=== PATIENT | male | born 2000 | race Caucasian/White ===

== ENCOUNTER 2023-06-28 16:51 | Inpatient (IN) ==
--- NOTE | 2023-06-28 17:03 | ED Triage Note ---
Date of Service June 28, 2023 Provider in Triage Author: Cary Renae History of Present Illness This patient was briefly evaluated while in triage. An abbreviated physical exam was performed. This patient is a 23-year-old Male who presents to the ED for evaluation of central chest pain, no radiation, reports shob, no viral symptoms. Reports cardiac history of hypertrophic cardiomyopathy, ICD, sudden cardiac . Physical Exam CONSTITUTIONAL: in no acute pain or distress, resting comfortably SKIN: pink, warm, dry CARDIAC: regular rate and rhythm RESPIRATORY: in no respiratory distress, lungs clear to auscultation ABDOMEN: no TTP MSK: 5/5 strength throughout NEURO: no neuro deficits, alert and oriented x 3 Initial orders for labs and / or imaging were placed and patient was placed in the waiting area until a bed is available. Please see further documentation for the full ED course.
--- NOTE | 2023-06-28 17:26 | Emergency Department Note ---
Impression & Plan Heart block AV second degree, Lyme carditis, Chest pain, Elevated troponin I level ED Provider Note NAME: CALEB IZAGUIRRE AGE: 23 SEX: M : 2000 ARRIVES VIA: Walk-In INFORMANT: Patient, ED PROVIDER(S): Keith Chow DO CHIEF COMPLAINT: Palpitations HPI: The patient is a 23-year-old male who has a history of cardiomyopathy as well as cardiac arrest who has a defibrillator pacemaker who presented to the emergency department for an evaluation of palpitations. The patient denies having any new medications. He had no recent illnesses. He had no changes to his current medications. He is been compliant with his outpatient medications. Since this morning he started noticing trouble feeling well. The patient denies having any vomiting. He denies having any dysuria or frequency. ROS: See above HPI for pertinent positives & negatives. A total of 10 systems reviewed and were otherwise negative. PAST MEDICAL HISTORY: See Below PAST SURGICAL HISTORY: See Below FAMILY HISTORY: See Below SOCIAL HISTORY: See Below HOME MEDICATIONS: See Below ALLERGIES: See Below VITALS: See Below PHYSICAL EXAMINATION: GENERAL: Patient is awake alert in no acute distress patient is resting comfortably and showing no signs of anxiety EYES: The conjunctivae are clear. The pupils are round and reactive. EARS, NOSE, MOUTH AND THROAT: The nose is without any evidence of any deformity. NECK: The neck is nontender and supple. RESPIRATORY: Normal respiratory effort is noted there is no evidence of wheezing rhonchi or rales CARDIOVASCULAR: Irregular heartbeat was noted to auscultation. There is no definite murmur. GASTROINTESTINAL: The abdomen is soft. Abdomen is nontender. MUSCULOSKELETAL/EXTREMITIES: There is no evidence of gross deformity full range of motion is noted in the hips and shoulders. SKIN: There is no obvious evidence of any rash. There are no petechiae, pallor or cyanosis noted. NEUROLOGIC: Patient is awake alert and oriented x3 MEDICAL DECISION MAKING: The patient is a 23-year-old male who presented to the emergency department for an evaluation of chest pain and slow heart rate. The patient does have a history of hypertrophic cardiomyopathy. He has implantable pacer defibrillator. The patient was found to have a second-degree heart block in the emergency department. He was treated with transcutaneous pacer at the bedside. 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 I discussed the patient's laboratory and radiographic studies with him. I discussed his condition with the on-call [facility] heating and ventilating drafter as well as the on-call [facility] hospitalist. They have agreed to evaluate the patient in the emergency department for further management and disposition. Triage Nursing notes reviewed. Prior medical records reviewed Vital Signs: reviewed and remarkable for bradycardia. Differential diagnosis: Premature contractions, electrolyte abnormality, cardiac dysrhythmia, thyroid dysfunction, pulmonary embolism, infection, gastrointestinal, as well as other pathologies. ER treatment provided: See below Diagnostics interpreted by me: ECG: EKG was obtained in the emergency department. My interpretation is sinus bradycardia at 57 bpm. PVCs were noted. Signs of second-degree heart block, type two, are noted. No previous EKG were noted. Cardiac Monitoring: An order was placed for continuous cardiac monitoring. The monitor shows a rate of 58 bpm with second-degree heart block. Laboratory studies: As stated above and show below. Imaging studies: See below. Radiographic imaging was reviewed by myself Consultation(s): I discussed this case with Dr. Day who is on-call for [facility] cardiology. I discussed this case with Dr. iHckey who is on-call for the [facility] hospitalist group ED COURSE: Procedures: none Critical Care: I have personally spent greater than 35 minutes of critical care time in the direct management of this patient. This includes bedside care, interpretation of diagnostic studies, and testing, discussion with consultants, patient, and family members, and other required patient management activities. This 35 minutes is in excess of all separately billable procedures. 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 [employer] Feels Safe at Home: Yes Allergies Allergies Allergy/AdvReac Type Severity Reaction Status Date / Time No Known Drug Allergies Allergy 0 Verified 06/28/23 19:22 Home Meds Home Medications Medication Instructions Recorded Confirmed buspirone 10 mg tablet 10 mg PO TID PRN Anxiety 06/28/23 06/28/23 metoprolol succinate 25 mg 25 mg PO QAM 06/28/23 06/28/23 tablet,extended release 24 hr Results & Data (ED) Vital Signs Vital Signs - 24 hr 06/28/23 16:52 06/28/23 17:01 06/28/23 17:03 Temperature 36.6 C Temperature Source Temporal Artery Scan Pulse Rate 92 H Pulse Rate [Apical] Respiratory Rate 20 Respiratory Effort / Characteristics Non-Labored Spontaneous Respiratory Depth Normal Blood Pressure 128/76 Blood Pressure [Right Arm] Blood Pressure Mean 93 Blood Pressure Mean [Right Arm] Pulse Oximetry 97 99 97 Oxygen Delivery Method Room Air Room Air Room Air Sepsis Recent Fever Within 48 Hours No Sepsis New/Unexplained Change in Mental Status N/A Sepsis Action Taken by Nursing No Action Required 06/28/23 17:21 06/28/23 17:38 Temperature Temperature Source Pulse Rate 87 Pulse Rate [Apical] 67 Respiratory Rate 17 Respiratory Effort / Characteristics Respiratory Depth Blood Pressure Blood Pressure [Right Arm] 149/95 H Blood Pressure Mean Blood Pressure Mean [Right Arm] 113 Pulse Oximetry 98 Oxygen Delivery Method Room Air Sepsis Recent Fever Within 48 Hours Sepsis New/Unexplained Change in Mental Status Sepsis Action Taken by Snf Medications Current Medication List: was personally reviewed by me Laboratory Data Attestation: I reviewed the patient's lab results. 06/28/23 17:12 06/28/23 17:12 Lab Results 06/28/23 06/28/23 Range/Units 17:12 18:58 WBC 11.60 H (4.8-10.8) K/ul RBC 5.64 (4.70-6.10) M/uL Hgb 17.5 (14.0-18.0) g/dl Hct 48.6 (42.0-52.0) % MCV 86.2 (80.0-100.0) fL MCH 31.0 (25.0-34.0) pg MCHC 36.0 (32.0-36.0) g/dL RDW Std Deviation 36.8 (36.4-46.3) fL RDW Coeff of Xochilt 11.8 (11.5-14.5) % Plt Count 314 (130-400) K/uL MPV 10.3 (9.4-12.4) fL Immature Gran % (Auto) 0.4 % Neut % (Auto) 62.6 % Lymph % (Auto) 24.6 % Rusk % (Auto) 10.3 % Eos % (Auto) 1.6 % Baso % (Auto) 0.5 % Neut # (Auto) 7.26 H (1.40-6.50) K/uL Lymph # (Auto) 2.85 (1.20-3.40) K/uL Rusk # (Auto) 1.19 H (0.11-0.59) K/uL Eos # (Auto) 0.19 (0.00-0.50) K/uL Baso # (Auto) 0.06 (0.00-0.20) K/uL Immature Gran # (Auto) 0.05 (0.01-0.20) K/uL Sodium 140 (136-145) mmol/L Potassium 4.5 (3.5-5.1) mmol/L Chloride 108 H (98-107) mmol/L Carbon Dioxide 23 (21-32) mmol/L Anion Gap 9 (3-11) BUN 17 (6-23) mg/dl Creatinine 1.12 (0.6-1.4) mg/dl Est Cr Clr Drug Dosing 116.1 ml/min Est GFR ( Amer) 106.0 ml/min Est GFR (Non-Af Amer) 91.5 ml/min BUN/Creatinine Ratio 15.2 (10-20) Glucose 89 (70-99(Fasting)) mg/dl Calcium 9.7 (8.6-10.3) mg/dl Magnesium 2.0 (1.7-2.4) mg/dl Total Bilirubin 0.4 (0.2-1.0) mg/dl AST 25 (13-39) U/L ALT 35 (7-52) U/L Alkaline Phosphatase 49 (34-104) U/L Troponin I High Sens 138.4 H* 174.9 H* D (0-20) pg/ml B-Natriuretic Peptide 97 (0-100) pg/ml Total Protein 7.4 (6.0-8.3) gm/dl Albumin 4.7 (3.4-5.0) gm/dl Globulin 2.7 (2.5-4.0) gm/dl Albumin/Globulin Ratio 1.7 (0.9-2) Lipase 29 (11-82) U/L TSH 2.676 (0.300-4.500) uIu/ml Lyme Disease IgG Ab Positive A (Negative) Lyme Disease IgM Ab Negative (Negative) Administered Medications Enoxaparin Sodium (Enoxaparin Inj 40 Mg/0.4 Ml Syr) 40 mg SQ Q24H MAMADOU Stop: 07/28/23 21:59 Last Admin: 06/28/23 21:45 Dose: 40 mg Documented By: ACC Discontinued Medications Ceftriaxone Sodium (Rocephin) 2,000 mg in 50 mls @ 100 mls/hr IV NOW STA Stop: 06/28/23 19:13 Last Infusion: 06/28/23 19:49 Dose: Infused Documented By: Admin: 06/28/23 18:59 Dose: 100 mls/hr Documented By: KASSANDRA Imaging Data Attestation: I personally reviewed and interpreted this imaging study as follows: My Impression: 1 view chest x-ray was obtained in the emergency department. My interpretation is no free air or definite infiltrate, final report below Radiologist's Impression: Chest X-Ray 06/28/23 17:03 XR chest 1V portable CLINICAL HISTORY: Chest pain, nonspecific. COMPARISON STUDY: No previous studies for comparison. FINDINGS: A left subclavian pacer/AICD is in place. Mild enlargement of the cardiac silhouette is noted. No evidence for pulmonary edema. No consolidation is present. There is no pneumothorax or pleural effusion. IMPRESSION: No acute cardiopulmonary findings. Mild cardiomegaly. ACT 112: Negative or not required by law. Electronically signed by: Juan Alberto Aceves M.D. 06/28/2023 6:00 PM Discharge Plan Visit Data Chief Complaint: Chest Pain Stated Complaint: CHEST PAINS, PALPITATIONS ED Provider: Keith Chow Discharge Problem: Heart block AV second degree, Lyme carditis, Chest pain, Elevated troponin I level Patient Disposition: Being Evaluated by Hospitalist Discharge Instructions Interventions: ED Discharge Assessment Last Done: 06/28/23 21:00 Discharge Problem: Chest pain Qualifiers: Chest pain type: unspecified Qualified Code(s): R07.9 - Chest pain, unspecified
[2023-06-28 17:29] LABS: Basophils # (auto) 0.06 K/uL (0.00-0.20); Basophils % (auto) 0.5 %; Eosinophils # (auto) 0.19 K/uL (0.00-0.50); Eosinophils % (auto) 1.6 %; Hematocrit (blood only) 48.6 % (42.0-52.0); Hemoglobin 17.5 g/dl (14.0-18.0); Immature Granulocytes # (auto) 0.05 K/uL (0.01-0.20); Immature Granulocytes % (auto) 0.4 %; Lymphocytes # (auto) 2.85 K/uL (1.20-3.40); Lymphocytes % (auto) 24.6 %; Mean Corpuscular Volume 86.2 fL (80.0-100.0); Mean Platelet Volume 10.3 fL (9.4-12.4); Monocytes # (auto) 1.19 K/uL (0.11-0.59); Monocytes % (auto) 10.3 %; Neutrophils # (auto) 7.26 K/uL (1.40-6.50); Neutrophils % (auto) 62.6 %; Platelet Count 314 K/uL (130-400); RDW Coefficient of Variation 11.8 % (11.5-14.5); RDW Standard Deviation 36.8 fL (36.4-46.3); Red Blood Count 5.64 M/uL (4.70-6.10)
[2023-06-28 17:46] LABS: Albumin Globulin Ratio 1.7 (0.9-2); Albumin Level 4.7 gm/dl (3.4-5.0); BUN Creatinine Ratio 15.2 (10-20); Bilirubin,Total 0.4 mg/dl (0.2-1.0); Calcium 9.7 mg/dl (8.6-10.3); Creatinine Clr Calc Pharmacy 116.1 ml/min; Est GFR (Non-African American) 91.5 ml/min; Globulin 2.7 gm/dl (2.5-4.0); Potassium 4.5 mmol/L (3.5-5.1); Total Protein 7.4 gm/dl (6.0-8.3)
[2023-06-28 17:55] LABS: Troponin I High Sensitivity 138.4 pg/ml (0-20)
--- NOTE | 2023-06-28 18:01 | XRay Report ---
XR chest 1V portable CLINICAL HISTORY: Chest pain, nonspecific. COMPARISON STUDY: No previous studies for comparison. FINDINGS: A left subclavian pacer/AICD is in place. Mild enlargement of the cardiac silhouette is not ed. No evidence for pulmonary edema. No consolidation is present. There is no pneumothorax or pleural effusion. IMPRESSION: No acute cardiopulmonary findings. Mild cardiomegaly. ACT 112: Negative or not required by law. Electronically signed by: Juan Alberto Aceves M.D. 06/28/2023 6:00 PM
[2023-06-28 18:02] LABS: Thyroid Stimulating Hormone 2.676 uIu/ml (0.300-4.500)
--- NOTE | 2023-06-28 18:24 | History & Physical Report ---
Date of Service June 28, 2023 Assessment & Plan (1) Mobitz type 2 second degree heart block: Plan: Palpitations, history of hypertrophic cardiomyopathy with ICD/Pacer. EKG for comparison 2018 sinus rhythm, report reviewed from patient's phone EKG suspicious for Mobitz 2 heart block w/ L bundle. OH appears generally consistent with intermittent dropped beats. Troponin 138. Patient has baseline elevated troponin, was able to few old records and by old troponin measurement generally runs approximately 0.125 Lyme IgG positive, IgM and Western blot pending. Will treat with Rocephin for potential cardiac Lyme with heart block. Patient did have a rash/spot on his hand a few months ago but this went away and has not had other symptoms including fever/chills/arthralgias since Admitted to PCU Cardiology consulted. Interrogation pending. Biomarkers trended Echo pending Metoprolol temporarily held Admitted to PCU with pacer pads in place (2) Lyme carditis: Plan: IgG positive, has a dog, has never been treated before. Has not noticed any tick bites but did out of her rash a few months ago on his hand which went away. No arthralgias - Heart block as noted - Rocephin as noted (3) Apical variant hypertrophic cardiomyopathy: Plan: ICD/pacer in place. Cardiology consulted. Atrial pacing lines are intermittently noted, but has not had ventricular pacing. Above discussed with cardiology, EP will see in the morning and evaluate for device adjustment (4) ICD (implantable cardioverter-defibrillator) in place: Plan DVT prophylaxis: Lovenox Disposition: PCU Diet: Low-salt CODE STATUS: Full code History of Present Illness Primary Care Provider: NO PCP Levi is a 23-year-old male with past medical history of hypertrophic cardiomyopathy with defibrillator/pacemaker in place who presents with palpitations. He has a mildly elevated troponin of 15.4, EKG shows sinus bradycardia? Type II heart block and left bundle. Case was discussed with Dr. Day while patient was in the ER prior to admission, low suspicion for ACS and suspect may need a pacemaker adjustment. Interrogation pending, echo pending. Will follow on PCU He reports that he started to have palpitations this morning but does not have chest pain/chest pressure or shortness of breath. He initially thought this was best described as pain but is not really pain, is more a feeling like his heart is missing beats without discomfort. This is not present at time of initial assessment, occurs intermittently and randomly. He has not had leg swelling. No fevers, chills, sweats. No arthralgias. No diarrhea/constipation. No syncope or lightheadedness or dizziness From [place], lives in [place] now. No tobacco or ETOH use. NKDA Sees cardiology for atrial cardiomyopathy. Has been told he is NYHA I-II C. Not recommended for experimental myosin tx. Follows with Dr. Ronn Snow Palpitation. Worried as he was told he had Adverse remodeling, mild from HOCM. NO cardiac MRI in 5 years, an echo in a year. Reports his troponin is normally elevated. TRop I 0.125 (old sensitivity). Apical Variant of HOCM with heart failure with ICD/Pacer. Had frequent arr ythmias which could be aflutter or fibrillation but prop setter. Is from [place], follows with [facility] Cardiology. Takes metoprolol 25mg daily. Took this morning, forgets sometimes. Prescribed buspar, but isn't taking this. Takes this for anxiety, but anxiety is not doing well lately. [place] terrible on Zoloft and SSRIs. Has never needed diuretics Allergies Allergy/AdvReac Type Severity Reaction Status Date / Time No Known Drug Allergies Allergy Verified 11/27/21 13:59 Home Medications Medication Instructions Recorded Confirmed Type metoprolol tartrate 50 mg tablet 50 mg PO DAILY 11/27/21 11/27/21 History Past Med/Surg History Medical History (Updated 06/28/23 @ 18:52 by Aroldo Marshall MD) Physical deconditioning Diastolic heart failure Ventricular tachycardia Supraventricular tachycardia Apical variant hypertrophic cardiomyopathy ICD (implantable cardioverter-defibrillator) in place Surgical History H/O bilateral inguinal hernia repair Social History Smoking Status: Never smoker Second Hand Exposure: No; Do You Dip or Chew Tobacco: No; Hx Alcohol Use: Yes Hx Substance Use: No Current Living Situation: Alone 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 NAD. Cooperative. HEENT: Atraumatic, normocephalic. Vision and hearing intact Pulm: CTAB A&P. -wheezes, -rales, -rhonchi. Symmetrical chest rise. No increased work of breathing. No respiratory distress. Cardiac: irregular, intermittent bradycardia. -mrg. Radial pulses intact and symmetrical. Abdominal: Nontender, nondistended, soft. BS present. Ext: warm, dry. No edema Results & Data Results & Data Vital Signs (Past 12 Hours) Vital Signs Temp Pulse Pulse Resp BP BP Pulse Ox 06/28/23 17:38 87 06/28/23 17:21 67 17 149/95 H 98 06/28/23 17:03 97 06/28/23 17:01 36.6 C 92 H 20 128/76 99 06/28/23 16:52 97 O2 Del Method 06/28/23 17:38 06/28/23 17:21 Room Air 06/28/23 17:03 Room Air 06/28/23 17:01 Room Air 06/28/23 16:52 Room Air PG Care Time/CCT Total # of Minutes Spent Total Time Spent with Patient: Total time spent is greater than 50% in coordination of care (as documented) at patient's floor/unit and/or counseling patient: Coding Level of Care Code 33996 INT INP/OBS CARE 3/75MIN Diagnoses Mobitz type 2 second degree heart block I44.1 Lyme carditis A69.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
[2023-06-28 18:27] LABS: Lyme Ab IgM w/WB Rflx Negative (Negative)
[2023-06-28 18:32] LABS: Lyme Ab IgG w/WB Rflx Positive (Negative)
[2023-06-28] MEDS ORDERED: cefTRIAXone SODIUM 2,000 MG/50 ML BAG IV STA (18:44)
[2023-06-28] MEDS ORDERED: ACETAMINOPHEN 325 MG TAB PO PRN (20:59)
[2023-06-28] MEDS: ENOXAPARIN INJ 40 MG/0.4 ML SYR SQ SCH (21:45)
[2023-06-29 04:02] LABS: Basophils # (auto) 0.08 K/uL (0.00-0.20); Basophils % (auto) 0.7 %; Eosinophils # (auto) 0.19 K/uL (0.00-0.50); Eosinophils % (auto) 1.7 %; Hematocrit (blood only) 49.2 % (42.0-52.0); Hemoglobin 16.8 g/dl (14.0-18.0); Immature Granulocytes # (auto) 0.05 K/uL (0.01-0.20); Immature Granulocytes % (auto) 0.5 %; Lymphocytes # (auto) 3.03 K/uL (1.20-3.40); Lymphocytes % (auto) 27.5 %; Mean Corpuscular Hemoglobin 30.2 pg (25.0-34.0); Mean Corpuscular Hgb Conc 34.1 g/dL (32.0-36.0); Mean Corpuscular Volume 88.3 fL (80.0-100.0); Mean Platelet Volume 9.8 fL (9.4-12.4); Monocytes # (auto) 0.96 K/uL (0.11-0.59); Monocytes % (auto) 8.7 %; Neutrophils % (auto) 60.9 %; Platelet Count 259 K/uL (130-400); RDW Coefficient of Variation 11.9 % (11.5-14.5); RDW Standard Deviation 37.7 fL (36.4-46.3); Red Blood Count 5.57 M/uL (4.70-6.10); White Blood Count 11.01 K/ul (4.8-10.8)
[2023-06-29 04:15] LABS: BUN Creatinine Ratio 14.3 (10-20); Calcium 9.3 mg/dl (8.6-10.3); Creatinine Clr Calc Pharmacy 132.7 ml/min; Est GFR (African American) 124.6 ml/min; Est GFR (Non-African American) 107.5 ml/min; Potassium 4.3 mmol/L (3.5-5.1)
--- NOTE | 2023-06-29 07:10 | Electrocardiogram Report ---
Test Reason : Blood Pressure : / mmHG Vent. Rate : 057 BPM Atrial Rate : 044 BPM P-R Int : 156 ms QRS Dur : 142 ms QT Int : 420 ms P-R-T Axes : 037 -05 122 degrees QTc Int : 408 ms Sinus tachycardia with high degree AV block Biatrial enlargement Left bundle branch block Abnormal ECG No previous ECGs available Confirmed by Lv Day ([id number]) on 06/29/2023 7:10:14 AM Referred By: REFERRED SELF Confirmed By:Jose Day
--- NOTE | 2023-06-29 09:29 | XCELERA ---
[id number]
--- NOTE | 2023-06-29 09:37 | Cardiology Consultation ---
Date of Consultation June 29, 2023 Assessment & Plan (1) Elevated troponin I level: (2) ICD (implantable cardioverter-defibrillator) in place: (3) Mobitz type 2 second degree heart block: (4) Apical variant hypertrophic cardiomyopathy: (5) Mitral regurgitation: Plan 1. Heart block: He has high-degree AV block. Review of his device suggest there were episodes occurring in late May. And recording from cardiac rehab on 06/24/2023 also records a single dropped beat. No prolongation of the DC interval prior to dropped beats suggestive of infra-Hisian disease. This seems more likely as his block seems to get worse when he is active as well. Unclear etiology, but the 2 leading possibilities would be Lyme carditis versus progression of his known hypertrophic cardiomyopathy. He appears to have other electrical problems associated with his hypertrophic cardiomyopathy to include ventricular fibrillation, what appears to be left bundle branch block and atrial flutter. Hopefully with treatment of Lyme disease we will see improvement in the conduction. Otherwise, this likely represents progression of his hypertrophic cardiomyopathy and he will simply require permanent reprogramming of his device to allow pacing support. 2. Elevated troponin: Reportedly a chronic condition. Old records also support this. No significant rise or fall to suggest an acute coronary syndrome or recent injury. Also possibly related to Lyme carditis or another myopathic process. 3. Mitral regurgitation: Mild to moderate. No outflow tract obstruction to suggest CAROL. 4. Hypertrophic cardiomyopathy: Apical variant. Unfortunately, he has had some severe complications related to his hypertrophic cardiomyopathy. No associated family members by report. While he does not have obstructive symptoms. Does have an element of diastolic dysfunction. There is some left atrial enlargement and reports of atrial flutter. There is no indication for any prophylactic treatment other than his electrical abnormalities. 5. Cardiac arrest: Less common in apical variant hypertrophic cardiomyopathy. Normally functioning ICD in place. No detected ventricular arrhythmias. 6. Dual-chamber ICD: Currently programmed to DDI 40. We discussed reprogramming to reduce symptoms. I reprogrammed the device to DDD 40. I programmed relatively short AV delays so that he is less symptomatic. We discussed periodic re-evaluation of the device to determine if pacing is still necessary and to adjust the AV delays if necessary. History of Present Illness Reason for Consultation: Heart block Requesting Physician: Joanna Attending Physician: Kishor Leone MD History of Present Illness The patient is a 23-year-old gentleman with a history apical variant hypertrophic cardia who presented to the emergency room with symptoms of chest pain. On further characterization the patient describes this more as a palpitation and a sense of irregularity in his heartbeat. The symptoms started the day prior. There were associated with some mild dizziness leading up to his admission. He has not suffered syncope. In the emergency room he was noted to have evidence of heart block. Lyme IgG titer was also positive and he was started on treatment for Lyme disease. Patient states that his diagnosis was prompted by a cardiac arrest that occurred while training several years ago. He underwent implantation of a dual-chamber [employer] ICD. He was placed on medical therapy with metoprolol. He has been followed by a director of group counseling program and environmental health and safety leader in [place]. He reports having some episodes of atrial flutter recorded on his device. He states that these episodes are infrequent and generally brief in duration. He has not noticed any rapid heartbeats recently. He avoids strenuous exercise by direction. Does have an element of mild dyspnea at times. This occurs with some activity. It does not limiting. It was not associated with chest pain. No presyncope or syncope. He does participate in cardiac rehab at our facility. He did not endorse any additional symptoms leading up to admission. He states that he did have a small rash on his right hand a short while ago. However, this was quite localized. No joint pain. No fevers or chills. No other more diffuse rashes or bruising. This morning he claims to be feeling well while in bed. However, he did notice some palpitations and some mild dizziness when getting up to the commode. Allergies Allergy/AdvReac Type Severity Reaction Status Date / Time No Known Drug Allergies Allergy 0 Verified 06/28/23 19:22 Home Medications Medication Instructions Recorded Confirmed Type buspirone 10 mg tablet 10 mg PO TID PRN Anxiety 06/28/23 06/28/23 History metoprolol succinate 25 mg 25 mg PO QAM 06/28/23 06/28/23 History tablet,extended release 24 hr Patient History Medical History (Updated 06/29/23 @ 09:39 by Lv Day MD) Physical deconditioning Diastolic heart failure Ventricular tachycardia Supraventricular tachycardia Apical variant hypertrophic cardiomyopathy ICD (implantable cardioverter-defibrillator) in place Surgical History H/O bilateral inguinal hernia repair Social History Smoking Status: Never smoker Second Hand Exposure: No; Do You Dip or Chew Tobacco: No; Hx Alcohol Use: No Hx Substance Use: No Preferred Language: Lithuanian Communication Ability: Effective Rehab Services Aide Required: No Beliefs That Will Affect Care: None Current Living Situation: Alone Current Living Situation Comment: Student at [employer], lives in studio appt current occupation: 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 Other Information That Helps Us Care for You: No Feels Safe at Home: Yes Safety Concerns: Feels Safe At This Time Review of Systems Review of Systems: Per HPI Physical Exam 2 Physical Exam: The patient is alert and oriented. Mood and affect appeared normal. He answered all questions appropriately. HEENT: Pupils are equal and reactive to light and accommodation. Extraocular movements are intact. The sclerae are anicteric. Neuro: Cranial nerves intact Lungs: Clear to auscultation bilaterally. He has good air movement without use of accessory muscles. No rales wheezes or rhonchi. Cardiac: Heart demonstrates a regular rhythm with occasional ectopy. Normal rate.. Normal S1 and S2. No murmurs on examination. Pulses: The patient has palpable radial pulses bilaterally that are equal in intensity Extremities: There was no evidence of hypoperfusion. There is no cyanosis or clubbing. There is no edema. Skin: I did not appreciate any rashes on examination today. Results & Data Vital Signs (Past 12 Hours) Vital Signs Temp Pulse Pulse Resp BP BP Pulse Ox 06/29/23 07:46 36.7 C 91 H 18 97/62 L 98 06/29/23 03:43 36.4 C L 62 18 126/70 97 06/28/23 23:59 36.9 C 95 H 18 117/74 98 06/28/23 23:59 06/28/23 23:52 72 06/28/23 23:51 36.9 C 95 H 17 117/74 98 06/28/23 23:01 71 13 125/65 98 06/28/23 22:00 73 16 125/58 L 96 O2 Del Method 06/29/23 07:46 Room Air 06/29/23 03:43 Room Air 06/28/23 23:59 Room Air 06/28/23 23:59 Room Air 06/28/23 23:52 06/28/23 23:51 Room Air 06/28/23 23:01 Room Air 06/28/23 22:00 Room Air Laboratory Results Abnormal Lab Results 06/28/23 06/28/23 06/29/23 17:12 18:58 03:48 WBC 11.60 H 11.01 H RBC 5.64 5.57 Hgb 17.5 16.8 Hct 48.6 49.2 MCV 86.2 88.3 MCH 31.0 30.2 MCHC 36.0 34.1 RDW Std Deviation 36.8 37.7 RDW Coeff of Xochilt 11.8 11.9 Plt Count 314 259 MPV 10.3 9.8 Immature Gran % (Auto) 0.4 0.5 Neut % (Auto) 62.6 60.9 Lymph % (Auto) 24.6 27.5 Alexander % (Auto) 10.3 8.7 Eos % (Auto) 1.6 1.7 Baso % (Auto) 0.5 0.7 Neut # (Auto) 7.26 H 6.70 H Lymph # (Auto) 2.85 3.03 Alexander # (Auto) 1.19 H 0.96 H Eos # (Auto) 0.19 0.19 Baso # (Auto) 0.06 0.08 Immature Gran # (Auto) 0.05 0.05 Sodium 140 140 Potassium 4.5 4.3 Chloride 108 H 107 Carbon Dioxide 23 25 Anion Gap 9 8 BUN 17 14 Creatinine 1.12 0.98 Est Cr Clr Drug Dosing 116.1 132.7 Est GFR ( Amer) 106.0 124.6 Est GFR (Non-Af Amer) 91.5 107.5 BUN/Creatinine Ratio 15.2 14.3 Glucose 89 92 Calcium 9.7 9.3 Magnesium 2.0 Total Bilirubin 0.4 AST 25 ALT 35 Alkaline Phosphatase 49 Troponin I High Sens 138.4 H* 174.9 H* D 193.4 H* B-Natriuretic Peptide 97 Total Protein 7.4 Albumin 4.7 Globulin 2.7 Albumin/Globulin Ratio 1.7 Lipase 29 TSH 2.676 Lyme Disease IgG Ab Positive A Lyme Disease IgM Ab Negative Diagnostic Findings Chest x-ray at time of admission did not reveal any acute cardiopulmonary process. I performed a complete device interrogation of his dual-chamber [employer] ICD. Currently programmed to DDI 40. Some episodes logged as ventricular tachycardia which are simply sinus tachycardia above the detection limit of 150 beats per minute. One episode of nonsustained VT which did demonstrate some heart block on June 20. No atrial arrhythmias. Estimated longevity 9.5 years. Mildly elevated pacing threshold on the right ventricular lead. Good sensing on both leads. Echocardiogram performed 06/29/2023: Normal LV systolic function with ejection fraction 55-60%. Stage I diastolic dysfunction. Evidence of apical hypertrophy. Mild to moderate mitral regurgitation. Mildly dilated left atriu m. ECG Additional Comments: Initial EKG demonstrated sinus tachycardia with high-degree AV block and left bundle branch block. PG Care Time/CCT Total # of Minutes Spent Total Time Spent with Patient: Total time spent is greater than 50% in coordination of care (as documented) at patient's floor/unit and/or counseling patient: Coding Level of Care Code 27602 IN/OBS CONSULT LVL 5,80M Diagnoses Elevated troponin I level R79.89 ICD (implantable cardioverter-defibrillator) in place Z95.810 Mobitz type 2 second degree heart block I44.1 Apical variant hypertrophic cardiomyopathy I42.2 Nonrheumatic mitral valve regurgitation I34.0 Cardiac valve disease etiology: nonrheumatic CPT Codes Implantable Defib dual lead programming - 13878 ([id number]) 26 - PROFESSIONAL COMPONENT (5) Mitral regurgitation Cardiac valve disease etiology: nonrheumatic Qualified Code(s): I34.0 - Nonrheumatic mitral (valve) insufficiency
[2023-06-29] MEDS: METOPROLOL SUCC 25MG EXT REL TAB PO SCH (11:19)
--- NOTE | 2023-06-29 12:11 | Electrocardiogram Report ---
Test Reason : Blood Pressure : / mmHG Vent. Rate : 074 BPM Atrial Rate : 074 BPM P-R Int : 158 ms QRS Dur : 144 ms QT Int : 432 ms P-R-T Axes : 031 -14 126 degrees QTc Int : 479 ms Poor data quality, interpretation may be adversely affected Sinus rhythm with high degree AV block Left atrial enlargement Left bundle branch block Abnormal ECG No previous ECGs available Confirmed by Lv Day ([id number]) on 06/29/2023 12:11:11 PM Referred By: REFERRED SELF Confirmed By:Jose Day
--- NOTE | 2023-06-29 16:21 | Hospitalist Progress Note ---
Date of Service June 29, 2023 Assessment & Plan (1) Mobitz type 2 second degree heart block: Plan: Palpitations, history of hypertrophic cardiomyopathy with ICD/Pacer. EKG for comparison 2018 sinus rhythm, report reviewed from patient's phone EKG suspicious for Mobitz 2 heart block w/ L bundle. NV appears generally consistent with intermittent dropped beats. Troponin 138. Patient has baseline elevated troponin, was able to few old records and by old troponin measurement generally runs approximately 0.125 Lyme IgG positive, IgM and Western blot pending. Will treat with Rocephin for potential cardiac Lyme with heart block. Patient did have a rash/spot on his hand a few months ago but this went away and has not had other symptoms including fever/chills/arthralgias since Discussed with ID over the phone patient is a candidate for IV antibiotic with Rocephin 2 g daily for 14 to 21 days unless his blood resolved then we will switch to doxycycline, we are waiting for rest of blood test, discussed with lab to result be available on Saturday, discussed with cardiology, Metoprolol temporarily held -Echocardiogram showed apical hypertrophy, grade 1 diastolic dysfunction history of apical variant of hypertrophic cardiomyopathy -as per cardiology : "Review of his device suggest there were episodes occurring in late May. And recording from cardiac rehab on 06/24/2023 also records a single dropped beat. No prolongation of the NV interval prior to dropped beats suggestive of infra-Hisian disease. - Cardiac arrest: Less common in apical variant hypertrophic cardiomyopathy. Normally functioning ICD in place. No detected ventricular arrhythmias. Dual-chamber ICD: Currently programmed to DDI 40. We discussed reprogramming to reduce symptoms. I reprogrammed the device to DDD 60. I programmed relatively short AV delays so that he is less symptomatic. We discussed periodic re- evaluation of the device to determine if pacing is still necessary and to adjust the AV delays if necessary" (2) Lyme carditis: Plan: IgG positive, has a dog, has never been treated before. Has not noticed any tick bites but did out of her rash a few months ago on his hand which went away. No arthralgias - Heart block as noted - Rocephin as noted (3) Apical variant hypertrophic cardiomyopathy: Plan: ICD/pacer in place. Cardiology consulted. Atrial pacing lines are intermittently noted, but has not had ventricular pacing. Above discussed with cardiology, EP will see in the morning and evaluate for device adjustment (4) ICD (implantable cardioverter-defibrillator) in place: Plan DVT prophylaxis: Lovenox Disposition: PCU Diet: Low-salt CODE STATUS: Full code Admission and Anticipated Discharge Date Admission Date: June 28, 2023 Physical Exam Physical Exam: The patient is alert and oriented. Mood and affect appeared normal. He answered all questions appropriately. HEENT: Pupils are equal and reactive to light and accommodation. Extraocular movements are intact. The sclerae are anicteric. Neuro: Cranial nerves intact Lungs: Clear to auscultation bilaterally. He has good air movement without use of accessory muscles. No rales wheezes or rhonchi. Cardiac: Heart demonstrates a regular rhythm with occasional ectopy. Normal rate.. Normal S1 and S2. No murmurs on examination. Pulses: The patient has palpable radial pulses bilaterally that are equal in intensity Extremities: There was no evidence of hypoperfusion. There is no cyanosis or clubbing. There is no edema. Skin: I did not appreciate any rashes on examination today. 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
[2023-06-29] MEDS: cefTRIAXone SODIUM 2,000 MG in DEXTROSE 5 % MINI-B 50 ML IV SCH (18:41)
[2023-06-29] MEDS: ENOXAPARIN INJ 40 MG/0.4 ML SYR SQ SCH (21:03)
[2023-06-30 07:13] LABS: Basophils # (auto) 0.06 K/uL (0.00-0.20); Basophils % (auto) 0.8 %; Eosinophils # (auto) 0.19 K/uL (0.00-0.50); Eosinophils % (auto) 2.5 %; Hematocrit (blood only) 49.3 % (42.0-52.0); Hemoglobin 17.4 g/dl (14.0-18.0); Immature Granulocytes # (auto) 0.06 K/uL (0.01-0.20); Immature Granulocytes % (auto) 0.8 %; Lymphocytes # (auto) 2.31 K/uL (1.20-3.40); Lymphocytes % (auto) 30.6 %; Mean Corpuscular Hemoglobin 30.7 pg (25.0-34.0); Mean Corpuscular Hgb Conc 35.3 g/dL (32.0-36.0); Mean Corpuscular Volume 86.9 fL (80.0-100.0); Mean Platelet Volume 10.1 fL (9.4-12.4); Monocytes % (auto) 10.6 %; Neutrophils # (auto) 4.12 K/uL (1.40-6.50); Neutrophils % (auto) 54.7 %; Platelet Count 247 K/uL (130-400); RDW Standard Deviation 37.8 fL (36.4-46.3); Red Blood Count 5.67 M/uL (4.70-6.10); White Blood Count 7.54 K/ul (4.8-10.8)
[2023-06-30 07:23] LABS: BUN Creatinine Ratio 20.4 (10-20); Calcium 9.7 mg/dl (8.6-10.3); Est GFR (African American) 124.6 ml/min; Est GFR (Non-African American) 107.5 ml/min; Potassium 4.1 mmol/L (3.5-5.1)
[2023-06-30] MEDS: METOPROLOL SUCC 25MG EXT REL TAB PO SCH (08:11)
--- NOTE | 2023-06-30 10:41 | Cardiology Progress Note ---
Date of Service June 30, 2023 Assessment & Plan (1) Elevated troponin I level: (2) ICD (implantable cardioverter-defibrillator) in place: (3) Mobitz type 2 second degree heart block: (4) Apical variant hypertrophic cardiomyopathy: (5) Mitral regurgitation: Plan 1. Heart block: His symptoms have resolved with adjustment of his pacemaker. No additional dropped beats. Whether his heart block was related to Lyme disease or progression of his hypertrophic cardiomyopathy is unclear. Still waiting on Western blot to determine the optimal course of treatment for his Lyme disease. Stable for discharge from a cardiac standpoint He has requested some adjustment in his pacemaker to avoid as much pacing as possible. I increased the AV intervals. Currently programmed DDD 40 2. Elevated troponin: Chronic. Not delivery representative of acute coronary syndrome. 3. Mitral regurgitation: Mild to moderate. No outflow tract obstruction to suggest CAROL. 4. Hypertrophic cardiomyopathy: Apical variant. Currently followed at [facility]. Continue metoprolol 5. Cardiac arrest: Continue metoprolol 6. Dual-chamber ICD: 7. SVT: He did have 1 episode of an SVT early this morning. This lasted a few seconds. Interrogation of his device suggest this was PMT. I increased the PVARP in order to avoid additional episodes. Admission and Anticipated Discharge Date Admission Date: June 28, 2023 Subjective This morning patient is feeling better. His palpitations have effectively resolved. He was ambulatory yesterday and felt much better. No dizziness or lightheadedness. He does feel as if he can tell when the pacemaker is working. He has been watching his hand-held telemetry to tell when it is pacing. Review of Systems Review of Systems: Per HPI Physical Exam Physical Exam: The patient is alert and oriented. Mood and affect appeared normal. He answered all questions appropriately. HEENT: Pupils are equal and reactive to light and accommodation. Extraocular movements are intact. The sclerae are anicteric. Neuro: Cranial nerves intact Lungs: Clear to auscultation bilaterally. He has good air movement without use of accessory muscles. No rales wheezes or rhonchi. Cardiac: Heart demonstrates a regular rhythm with occasional ectopy. Normal rate.. Normal S1 and S2. No murmurs on examination. Pulses: The patient has palpable radial pulses bilaterally that are equal in intensity Extremities: There was no evidence of hypoperfusion. There is no cyanosis or clubbing. There is no edema. Skin: I did not appreciate any rashes on examination today. Results & Data Vital Signs (Past 12 Hours) Vital Signs Temp Pulse Resp BP BP Pulse Ox O2 Del Method 06/30/23 07:16 36.8 C 69 17 111/63 98 Room Air 06/30/23 05:10 36.4 C L 66 18 137/78 97 Room Air 06/29/23 22:53 36.6 C 96 H 18 111/72 96 Room Air Laboratory Results Abnormal Lab Results 06/29/23 06/29/23 06/30/23 09:41 15:18 06:37 WBC 7.54 RBC 5.67 Hgb 17.4 Hct 49.3 MCV 86.9 MCH 30.7 MCHC 35.3 RDW Std Deviation 37.8 RDW Coeff of Xochilt 12.0 Plt Count 247 MPV 10.1 Immature Gran % (Auto) 0.8 Neut % (Auto) 54.7 Lymph % (Auto) 30.6 Pepin % (Auto) 10.6 Eos % (Auto) 2.5 Baso % (Auto) 0.8 Neut # (Auto) 4.12 Lymph # (Auto) 2.31 Pepin # (Auto) 0.80 H Eos # (Auto) 0.19 Baso # (Auto) 0.06 Immature Gran # (Auto) 0.06 Sodium 140 Potassium 4.1 Chloride 106 Carbon Dioxide 25 Anion Gap 9 BUN 20 Creatinine 0.98 Est Cr Clr Drug Dosing 133.0 Est GFR ( Amer) 124.6 Est GFR (Non-Af Amer) 107.5 BUN/Creatinine Ratio 20.4 H Glucose 79 Calcium 9.7 Troponin I High Sens 166.6 H* 131.3 H* D PG Care Time/CCT Total # of Minutes Spent Total Time Spent with Patient: Total time spent is greater than 50% in coordination of care (as documented) at patient's floor/unit and/or counseling patient: Coding Level of Care Code 37054 SUB INP/OBS CARE 2/35MIN Diagnoses Elevated troponin I level R79.89 ICD (implantable cardioverter-defibrillator) in place Z95.810 Mobitz type 2 second degree heart block I44.1 Apical variant hypertrophic cardiomyopathy I42.2 Nonrheumatic mitral valve regurgitation I34.0 Cardiac valve disease etiology: nonrheumatic CPT Codes Implantable Defib dual lead programming - 79964 ([id number]) 26 - PROFESSIONAL COMPONENT (5) Mitral regurgitation Cardiac valve disease etiology: nonrheumatic Qualified Code(s): I34.0 - Nonrheumatic mitral (valve) insufficiency
--- NOTE | 2023-06-30 16:40 | Hospitalist Progress Note ---
Date of Service June 30, 2023 Assessment & Plan (1) Mobitz type 2 second degree heart block: Plan: Palpitations, history of hypertrophic cardiomyopathy with ICD/Pacer. EKG for comparison 2018 sinus rhythm, report reviewed from patient's phone EKG suspicious for Mobitz 2 heart block w/ L bundle. [place] appears generally consistent with intermittent dropped beats. Troponin 138. Patient has baseline elevated troponin, was able to few old records and by old troponin measurement generally runs approximately 0.125 Lyme IgG positive, IgM and Western blot pending. Will treat with Rocephin for potential cardiac Lyme with heart block. Patient did have a rash/spot on his hand a few months ago but this went away and has not had other symptoms including fever/chills/arthralgias since Discussed with ID over the phone patient is a candidate for IV antibiotic with Rocephin 2 g daily for 14 to 21 days unless his blood resolved then we will switch to doxycycline, we are waiting for rest of blood test, discussed with lab to result be available on Saturday, discussed with cardiology, Metoprolol temporarily held -Echocardiogram showed apical hypertrophy, grade 1 diastolic dysfunction history of apical variant of hypertrophic cardiomyopathy -as per cardiology : "Review of his device suggest there were episodes occurring in late May. And recording from cardiac rehab on 06/24/2023 also records a single dropped beat. No prolongation of the [place] interval prior to dropped beats suggestive of infra-Hisian disease. - Cardiac arrest: Less common in apical variant hypertrophic cardiomyopathy. Normally functioning ICD in place. No detected ventricular arrhythmias. Dual-chamber ICD: Currently programmed to DDI 40. We discussed reprogramming to reduce symptoms. I reprogrammed the device to DDD 60. I programmed relatively short AV delays so that he is less symptomatic. We discussed periodic re- evaluation of the device to determine if pacing is still necessary and to adjust the AV delays if necessary" -Spoke to cardiology patient can be downgraded to [facility] surgical (2) Lyme carditis: Plan: IgG positive, has a dog, has never been treated before. Has not noticed any tick bites but did out of her rash a few months ago on his hand which went away. No arthralgias - Heart block as noted - Rocephin as noted (3) Apical variant hypertrophic cardiomyopathy: Plan: ICD/pacer in place. Cardiology consulted. Atrial pacing lines are intermittently noted, but has not had ventricular pacing. Above discussed with cardiology, EP will see in the morning and evaluate for device adjustment (4) ICD (implantable cardioverter-defibrillator) in place: Plan DVT prophylaxis: Lovenox Disposition: PCU Diet: Low-salt CODE STATUS: Full code Admission and Anticipated Discharge Date Admission Date: June 28, 2023 Subjective This morning patient is feeling better. His palpitations have effectively resolved. He was ambulatory yesterday and felt much better. No dizziness or lightheadedness. Review of Systems Review of Systems: Per HPI Physical Exam Physical Exam: The patient is alert and oriented. Mood and affect appeared normal. He answered all questions appropriately. HEENT: Pupils are equal and reactive to light and accommodation. Extraocular movements are intact. The sclerae are anicteric. Neuro: Cranial nerves intact Lungs: Clear to auscultation bilaterally. He has good air movement without use of accessory muscles. No rales wheezes or rhonchi. Cardiac: Heart demonstrates a regular rhythm with occasional ectopy. Normal rate.. Normal S1 and S2. No murmurs on examination. Pulses: The patient has palpable radial pulses bilaterally that are equal in intensity Extremities: There was no evidence of hypoperfusion. There is no cyanosis or clubbing. There is no edema. Skin: I did not appreciate any rashes on examination today. Results & Data Results & Data Vital Signs (Past 12 Hours) Vital Signs Temp Pulse Resp BP BP Pulse Ox O2 Del Method 06/30/23 16:05 37.0 C 78 18 139/87 98 Room Air 06/30/23 12:32 37.0 C 65 18 112/48 L 95 Room Air 06/30/23 07:16 36.8 C 69 17 111/63 98 Room Air 06/30/23 05:10 36.4 C L 66 18 137/78 97 Room Air PG Care Time/CCT Total # of Minutes Spent Total Time Spent with Patient: Total time spent is greater than 50% in coordination of care (as documented) at patient's floor/unit and/or counseling patient: Coding Level of Care Code 06727 SUB INP/OBS CARE 2/35MIN Diagnoses Mobitz type 2 second degree heart block I44.1 Lyme carditis A69.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
[2023-06-30] MEDS: cefTRIAXone SODIUM 2,000 MG in DEXTROSE 5 % MINI-B 50 ML IV SCH (18:04)
[2023-06-30] MEDS: ENOXAPARIN INJ 40 MG/0.4 ML SYR SQ SCH (19:58)
[2023-06-30] MEDS ORDERED: LORazepam 1 MG TAB PO STA (20:55)
[2023-06-30] MEDS: MAGNESIUM SULFATE / D5W 1 GM/100 ML BAG IV SCH ×2 (21:07→23:09)
[2023-06-30] MEDS ORDERED: LORazepam 1 MG in SYRINGE 0.5 ML IV STA (23:38)
[2023-07-01 06:41] LABS: Basophils # (auto) 0.06 K/uL (0.00-0.20); Basophils % (auto) 0.6 %; Eosinophils # (auto) 0.24 K/uL (0.00-0.50); Eosinophils % (auto) 2.3 %; Hematocrit (blood only) 49.4 % (42.0-52.0); Hemoglobin 17.3 g/dl (14.0-18.0); Immature Granulocytes # (auto) 0.07 K/uL (0.01-0.20); Immature Granulocytes % (auto) 0.7 %; Lymphocytes # (auto) 3.38 K/uL (1.20-3.40); Lymphocytes % (auto) 32.7 %; Mean Corpuscular Hemoglobin 30.4 pg (25.0-34.0); Mean Corpuscular Volume 86.7 fL (80.0-100.0); Mean Platelet Volume 10.3 fL (9.4-12.4); Monocytes # (auto) 0.93 K/uL (0.11-0.59); Neutrophils # (auto) 5.67 K/uL (1.40-6.50); Neutrophils % (auto) 54.7 %; Platelet Count 290 K/uL (130-400); RDW Coefficient of Variation 11.7 % (11.5-14.5); RDW Standard Deviation 36.7 fL (36.4-46.3); White Blood Count 10.35 K/ul (4.8-10.8)
[2023-07-01 07:21] LABS: BUN Creatinine Ratio 18.8 (10-20); Calcium 9.3 mg/dl (8.6-10.3); Creatinine Clr Calc Pharmacy 134.4 ml/min; Est GFR (African American) 127.7 ml/min; Est GFR (Non-African American) 110.2 ml/min
[2023-07-01] MEDS: METOPROLOL SUCC 25MG EXT REL TAB PO SCH (09:04)
--- NOTE | 2023-07-01 14:18 | Infectious Disease Consult ---
Date of Consultation July 01, 2023 Assessment & Plan (1) Mitral regurgitation: (2) ICD (implantable cardioverter-defibrillator) in place: (3) Mobitz type 2 second degree heart block: (4) Apical variant hypertrophic cardiomyopathy: (5) Lyme carditis: (6) Heart block AV second degree: (7) Elevated troponin I level: (8) Positive Lyme disease serology: Plan Levi Alonzo is a 23-year-old man with history of hypertrophic cardiomyopathy (apical variant) s/p AICD/PPM, who presents to [facility] on 06/28/23 with palpitations, found to have Mobitz type 2 second degree heart block, and Lyme Ab with +IgG Ab, western blot pending. ID is consulted for suspected Lyme carditis. Current ddx includes Lyme carditis but also possibly progression of pts underlying HCM. With positive Lyme IgG+. No erythema migrans, no joint pain, and no GLASS FORMING ENGINEER symptoms. Will await pts western blot for further confirmation of suspected Lyme carditis. Given the patients underlying structural heart disease and severity of heart block, would continue ceftriaxone, anticipate completing a 21-day treatment course for Lyme carditis. Consideration could be given to transitioning to PO doxycycline at the tail end of the course (>14 days of IV ceftriaxone) if his arrhythmias were to be fully resolved. Typically, patients with Lyme carditis have reversible arrhythmia, though the patient does also have underlying structural heart disease. Appreciate continued involvement from inpatient cardiology, and patient should have close follow-up with his outpatient cardiologists as well. 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 Marleny Rayo MD, MHS Infectious Diseases [facility]/ID Connect ID Connect direct line: [phone] Consultation Information Consultation was provided via telemedicine using two-way real-time interactive telecommunication between the patient and the telemedicine provider. For the duration of the visit, the provider was performing the assessment from a different facility than the patient. This includesuse of bluetooth stethoscope forauscultationperformed by the telepresenter that the telemedicine provider can hear if described in the physical exam. Medical Laboratory Specialist contact information: Please call ID Connect Call Center . 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 ID is consulted due to concern for Lyme carditis. The patient began having palpitations on 06/28 and feeling like his heart was having a lot of missed beats intermittently. Patient did have a small itchy red rash that looked like a bug bite a few months on his forearm (just a small red lesion). He has not noticed any targetoid/bullseye rashes. He has not had other symptoms including fever/chills/arthralgias since. The patient has never been diagnosed with or treated for Lyme disease before. He does think he may have taken a course of doxycycline >1-2 years ago for a different infection but never for Lyme. He presented to the ED on 06/28. He was found to have elevated troponin (peaked at 193.4 on 06/29 though has chronic troponin elevation as well). Found to be in Mobitz type 2 second degree heart block, and left bundle. Although he had an AICD/PPM in place, he never previously has been paced before and reports that his PPM was not activated. Patient was seen by cardiology and his PPM has been adjusted. +Lyme IgG Ab screen, negative IgM Ab screen, western blot pending. He was placed on IV ceftriaxone. WBC 11 -> now 8. At the time of evaluation, the patient reports that he is still having arrhythmias and tachycardia. He denies any joint pain, rashes, or other symptoms. From [place], lives in [place] now. 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 He is monogamous with one female partner and reports that he has had no prior history of STIs. He has a dog that he walks outdoors. No other significant outdoor activities. Allergies Allergy/AdvReac Type Severity Reaction Status Date / Time No Known Drug Allergies Allergy 0 Verified 06/28/23 19:22 Home Medications Medication Instructions Recorded Confirmed Type buspirone 10 mg tablet 10 mg PO TID PRN Anxiety 06/28/23 06/28/23 History metoprolol succinate 25 mg 25 mg PO QAM 06/28/23 06/28/23 History tablet,extended release 24 hr Patient History Medical History (Updated 07/01/23 @ 14:35 by Marleny Rayo MD) Physical deconditioning Diastolic heart failure Ventricular tachycardia Supraventricular tachycardia Apical variant hypertrophic cardiomyopathy ICD (implantable cardioverter-defibrillator) in place Surgical History H/O bilateral inguinal hernia repair Social History Smoking Status: Never smoker Second Hand Exposure: No; Do You Dip or Chew Tobacco: No; Hx Alcohol Use: No Hx Substance Use: No Preferred Language: Pashto Communication Ability: Effective Change Control Coordinator Required: No Beliefs That Will Affect Care: None Current Living Situation: Alone Current Living Situation Comment: Student at [employer], [place] current occupation: [employer] student and 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 General: Well-appearing, no acute distress HEENT: Conjunctivae non-injected, sclerae anicteric, MMM, OP clear. CV: Unable to tele-auscultate due to technical difficulties; per telepresenter: RRR, tachycardic Resp: Unable to tele-auscultate due to technical difficulties; per telepresenter: CTAB. Respirations nonlabored. Abd: Soft, nontender, nondistended. Normal bowel sounds throughout. No masses or organomegaly. Ext: Warm and well-perfused, no edema. No joint warmth or effusions noted. Skin: No rashes or lesions. Neuro: Alert & interactive. Grossly non-focal. Psych: Pleasant, appropriate. Results & Data Vital Signs (Past 12 Hours) Vital Signs Temp Pulse Pulse Resp BP Pulse Ox O2 Del Method 07/01/23 10:54 36.3 C L 71 18 109/69 97 Room Air 07/01/23 08:08 36.5 C 94 H 18 130/74 98 Room Air 07/01/23 04:41 Room Air 07/01/23 04:00 36.5 C 68 18 105/68 96 Room Air Diagnostic Findings Diagnostics: 06/29 TTE: apical hypertrophy, grade I diastolic dysfunction, LA mild dilation, mild-moderate MR Micro Summary: 06/28 Lyme IgG Ab screen positive, western blot pending. Lyme IgM Ab screen negative. Antibiotic Summary: Ceftriaxone (06/28-present) (1) Mitral regurgitation Cardiac valve disease etiology: nonrheumatic Qualified Code(s): I34.0 - Nonrheumatic mitral (valve) insufficiency
[2023-07-01] MEDS: ALPRAZolam 0.5 MG TABLET PO PRN ×2 (17:45→23:38)
--- NOTE | 2023-07-01 17:52 | Hospitalist Progress Note ---
Date of Service July 01, 2023 Assessment & Plan (1) Mobitz type 2 second degree heart block: Plan: Palpitations, history of hypertrophic cardiomyopathy with ICD/Pacer. EKG for comparison 2018 sinus rhythm, report reviewed from patient's phone EKG suspicious for Mobitz 2 heart block w/ L bundle. [place] appears generally consistent with intermittent dropped beats. Troponin 138. Patient has baseline elevated troponin, was able to few old records and by old troponin measurement generally runs approximately 0.125 Lyme IgG positive, IgM and Western blot pending. Will treat with Rocephin for potential cardiac Lyme with heart block. Patient did have a rash/spot on his hand a few months ago but this went away and has not had other symptoms including fever/chills/arthralgias since Discussed with ID over the phone patient is a candidate for IV antibiotic with Rocephin 2 g daily for 14 to 21 days unless his blood resolved then we will switch to doxycycline, we are waiting for rest of blood test, discussed with lab to result be available on Saturday, discussed with cardiology, Metoprolol temporarily held -Echocardiogram showed apical hypertrophy, grade 1 diastolic dysfunction history of apical variant of hypertrophic cardiomyopathy -as per cardiology : "Review of his device suggest there were episodes occurring in late May. And recording from cardiac rehab on 06/24/2023 also records a single dropped beat. No prolongation of the [place] interval prior to dropped beats suggestive of infra-Hisian disease. - Cardiac arrest: Less common in apical variant hypertrophic cardiomyopathy. Normally functioning ICD in place. No detected ventricular arrhythmias. Dual-chamber ICD: Currently programmed to DDI 40. We discussed reprogramming to reduce symptoms. I reprogrammed the device to DDD 60. I programmed relatively short AV delays so that he is less symptomatic. We discussed periodic re- evaluation of the device to determine if pacing is still necessary and to adjust the AV delays if necessary" - still waiting for Western blot for Lyme disease (2) Lyme carditis: Plan: IgG positive, has a dog, has never been treated before. Has not noticed any tick bites but did out of her rash a few months ago on his hand which went away. No arthralgias - Heart block as noted - the plan is to continue IV Rocephin for 14 to 21-day as per my discussion with ID if Western blot PCR is positive, as per my discussion with the ID if the block has been resolved then patient can be switch to doxycycline prior to completion of 21-day of treatment with Rocephin - we will inform the patient's primary care doctor/mail order clerk when the result of Western blot is available for outpatient follow-up - as per my discussion with lab the Western Blot PCR result will be available t omorrow (3) Apical variant hypertrophic cardiomyopathy: Plan: ICD/pacer in place. Cardiology consulted. Atrial pacing lines are intermittently noted, but has not had ventricular pacing. Above discussed with cardiology, EP will see in the morning and evaluate for device adjustment (4) ICD (implantable cardioverter-defibrillator) in place: Plan DVT prophylaxis: low risk does not need Lovenox Diet: Low-salt CODE STATUS: Full code Admission and Anticipated Discharge Date Admission Date: June 28, 2023 Subjective no complaint today, Review of Systems Review of Systems: Per HPI Physical Exam Physical Exam: The patient is alert and oriented. Mood and affect appeared normal. He answered all questions appropriately. HEENT: Pupils are equal and reactive to light and accommodation. Extraocular movements are intact. The sclerae are anicteric. Neuro: Cranial nerves intact Lungs: Clear to auscultation bilaterally. He has good air movement without use of accessory muscles. No rales wheezes or rhonchi. Cardiac: Heart demonstrates a regular rhythm with occasional ectopy. Normal rate.. Normal S1 and S2. No murmurs on examination. Pulses: The patient has palpable radial pulses bilaterally that are equal in intensity Extremities: There was no evidence of hypoperfusion. There is no cyanosis or clubbing. There is no edema. Skin: I did not appreciate any rashes on examination today. Results & Data Results & Data Vital Signs (Past 12 Hours) Vital Signs Temp Pulse Resp BP Pulse Ox O2 Del Method 07/01/23 15:46 36.6 C 72 18 149/67 H 96 Room Air 07/01/23 10:54 36.3 C L 71 18 109/69 97 Room Air 07/01/23 08:08 36.5 C 94 H 18 130/74 98 Room Air PG Care Time/CCT Total # of Minutes Spent Total Time Spent with Patient: Total time spent is greater than 50% in coordination of care (as documented) at patient's floor/unit and/or counseling patient: Coding Level of Care Code 42233 SUB INP/OBS CARE 3/50MIN Diagnoses Mobitz type 2 second degree heart block I44.1 Lyme carditis A69.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
--- NOTE | 2023-07-01 18:43 | Electrocardiogram Report ---
Test Reason : Blood Pressure : / mmHG Vent. Rate : 090 BPM Atrial Rate : 098 BPM P-R Int : 000 ms QRS Dur : 174 ms QT Int : 436 ms P-R-T Axes : 090 -68 094 degrees QTc Int : 533 ms Ventricular-paced rhythm tracking near and above upper programmed heart rate Abnormal ECG When compared with ECG of 28-JUN-2023 17:12, Atrial sensing is now present Confirmed by Paolo Kowalski ([id number]) on 07/01/2023 6:43:18 PM Referred By: REFERRED SELF Confirmed By:Paolo Kowalski
[2023-07-01] MEDS: cefTRIAXone SODIUM 2,000 MG in DEXTROSE 5 % MINI-B 50 ML IV SCH (18:44)
[2023-07-02] MEDS: METOPROLOL SUCC 25MG EXT REL TAB PO SCH (08:49)
[2023-07-02] MEDS: ALPRAZolam 0.5 MG TABLET PO PRN ×3 (08:50→22:09)
--- NOTE | 2023-07-02 10:17 | Infectious Disease Progress Nt ---
Date of Service July 02, 2023 Assessment & Plan (1) Mitral regurgitation: (2) ICD (implantable cardioverter-defibrillator) in place: (3) Mobitz type 2 second degree heart block: (4) Apical variant hypertrophic cardiomyopathy: (5) Lyme carditis: (6) Heart block AV second degree: (7) Elevated troponin I level: (8) Positive Lyme disease serology: Plan Levi Alonzo is a 23-year-old man with history of hypertrophic cardiomyopathy (apical variant) s/p AICD/PPM, who presents to [facility] on 06/28/23 with palpitations, found to have Mobitz type 2 second degree heart block, and Lyme Ab with +IgG Ab, western blot pending. ID is consulted for suspected Lyme carditis. Current ddx includes Lyme carditis but also possibly progression of pts underlying HCM. With positive Lyme IgG+. No erythema migrans, no joint pain, and no TRENCH TRIMMER FINE symptoms; interestingly, patient does report several weeks of brain fog that is new for him. Will await pts western blot for further confirmation of suspected Lyme carditis. Given the patients underlying structural heart disease and severity of heart block, would continue ceftriaxone and anticipate completing a 21-day treatment course for Lyme carditis. Consideration could be given to transitioning to PO doxycycline at the tail end of the course (>14 days of IV ceftriaxone) if his arrhythmias were to be fully resolved. Typically, patients with Lyme carditis have reversible arrhythmia, though the patient does also have underlying structural heart disease. Appreciate continued involvement from inpatient cardiology, and patient should have close follow-up with his outpatient cardiologists as well. 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 Marleny Rayo MD, MHS Infectious Diseases [facility]/ID Connect ID Connect direct line: [phone] Admission and Anticipated Discharge Date Admission Date: June 28, 2023 Subjective Subsequent visit was provided via telemedicine using two-way real-time interactive telecommunication between the patient and the telemedicine provider. For the duration of the visit, the provider was performing the assessment from a different facility than the patient. This includesuse of bluetooth stethoscope forauscultationperformed by the telepresenter that the telemedicine provider can hear if described in the physical exam. Electric Dolly Operator contact information: Please call ID Connect Call Center [phone]. (Phone Number For Physician Use Only) After establishing a telemedicine visit, patient was: Patient was verified with two unique identifiers, Patient/authorized rep acknowledged consent and understanding and Gave permission to continue telehealth session Time Spent with Patient: Subsequent => 35 min - Afebrile, WBC 10 - Feeling better today. Was able to sleep well last night, did not feel any palpitations. - Upon further reflection, he thinks that he may have had several weeks of brain fog and wonders whether that could be from Lyme infection Physical Exam Physical Exam: Exam obtained with aid of in-person telepresenter. General: Well-appearing, no acute distress HEENT: Conjunctivae non-injected, sclerae anicteric, MMM, OP clear. CV: Unable to tele-auscultate due to technical difficulties; per telepresenter: RRR Resp: Unable to tele-auscultate due to technical difficulties; per telepresenter: CTAB. Respirations nonlabored. Abd: Soft, nontender, nondistended. Ext: Warm and well-perfused, no edema. No joint warmth or effusions noted. Skin: No rashes or lesions. Neuro: Alert & interactive. Grossly non-focal. Psych: Pleasant, appropriate. Results & Data Vital Signs (Past 12 Hours) Vital Signs Temp Pulse Resp BP Pulse Ox O2 Del Method 07/02/23 07:42 36.4 C L 63 18 107/72 97 Room Air 07/02/23 03:23 36.6 C 65 18 106/66 94 Room Air 07/01/23 23:52 36.4 C L 67 18 107/70 96 Room Air Diagnostic Findings Diagnostics: 06/29 TTE: apical hypertrophy, grade I diastolic dysfunction, LA mild dilation, mild-moderate MR Micro Summary: 06/28 Lyme IgG Ab screen positive, western blot pending. Lyme IgM Ab screen negative. Antibiotic Summary: Ceftriaxone (06/28-present) (1) Mitral regurgitation Cardiac valve disease etiology: nonrheumatic Qualified Code(s): I34.0 - Nonrheumatic mitral (valve) insufficiency
--- NOTE | 2023-07-02 18:01 | Hospitalist Progress Note ---
Date of Service July 02, 2023 Assessment & Plan (1) Mobitz type 2 second degree heart block: Plan: Palpitations, history of hypertrophic cardiomyopathy with ICD/Pacer. EKG for comparison 2018 sinus rhythm, report reviewed from patient's phone EKG suspicious for Mobitz 2 heart block w/ L bundle. MT appears generally consistent with intermittent dropped beats. Troponin 138. Patient has baseline elevated troponin, was able to few old records and by old troponin measurement generally runs approximately 0.125 Lyme IgG positive, IgM and Western blot pending. Will treat with Rocephin for potential cardiac Lyme with heart block. Patient did have a rash/spot on his hand a few months ago but this went away and has not had other symptoms including fever/chills/arthralgias since Discussed with ID over the phone patient is a candidate for IV antibiotic with Rocephin 2 g daily for 14 to 21 days unless his blood resolved then we will switch to doxycycline, we are waiting for rest of blood test, discussed with lab to result be available 07/02 or 07/03 Metoprolol temporarily held -Echocardiogram showed apical hypertrophy, grade 1 diastolic dysfunction history of apical variant of hypertrophic cardiomyopathy -as per cardiology : "Review of his device suggest there were episodes occurring in late May. And recording from cardiac rehab on 06/24/2023 also records a single dropped beat. No prolongation of the MT interval prior to dropped beats suggestive of infra-Hisian disease. - Cardiac arrest: Less common in apical variant hypertrophic cardiomyopathy. Normally functioning ICD in place. No detected ventricular arrhythmias. Dual-chamber ICD: device programmed. We discussed periodic re-evaluation of the device to determine if pacing is still necessary and to adjust the AV delays if necessary" - still waiting for Western blot for Lyme disease (2) Lyme carditis: Plan: IgG positive, has a dog, has never been treated before. Has not noticed any tick bites but did out of her rash a few months ago on his hand which went away. No arthralgias - Heart block as noted - the plan is to continue IV Rocephin for 14 to 21-day as per my discussion with ID if Western blot PCR is positive, as per my discussion with the ID if the block has been resolved then patient can be switch to doxycycline prior to completion of 21-day of treatment with Rocephin - we will inform the patient's primary care doctor/horse race timer when the result of Western blot is available for outpatient follow-up - as per my discussion with lab the Western Blot PCR result will be available Today or tomorrow (3) Apical variant hypertrophic cardiomyopathy: Plan: ICD/pacer in place. Cardiology consulted. Atrial pacing lines are intermittently noted, but has not had ventricular pacing. Above discussed with cardiology, EP will see in the morning and evaluate for device adjustment (4) ICD (implantable cardioverter-defibrillator) in place: Plan DVT prophylaxis: low risk does not need Lovenox Diet: Low-salt CODE STATUS: Full code Admission and Anticipated Discharge Date Admission Date: June 28, 2023 Subjective patient feels well overall. Denies any chest pain or shortness of breath. He is inquiring about when the Western blot results will be available. Review of Systems Review of Systems: All systems reviewed & are unremarkable except as noted in Subjective Physical Exam Physical Exam: General: Awake, conversant Heart: S1, S2/regular rate and rhythm, no murmur rubs or gallops Lungs: Clear to auscultation bilaterally. Normal effort Abdomen: Soft/nontender/nondistended. No hepatosplenomegaly Extremities: No clubbing/cyanosis. No edema Behavior: Appropriate, cooperative Results & Data Results & Data Vital Signs (Past 12 Hours) Vital Signs Temp Pulse Pulse Resp BP Pulse Ox O2 Del Method 07/02/23 15:45 62 07/02/23 15:26 36.8 C 67 18 103/62 94 Room Air 07/02/23 11:24 36.6 C 60 18 101/65 98 Room Air 07/02/23 07:42 36.4 C L 63 18 107/72 97 Room Air PG Care Time/CCT Total # of Minutes Spent Total Time Spent with Patient: Total time spent is greater than 50% in coordination of care (as documented) at patient's floor/unit and/or counseling patient: Coding Level of Care Code 96985 SUB INP/OBS CARE 2/35MIN Diagnoses Mobitz type 2 second degree heart block I44.1 Lyme carditis A69.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
[2023-07-02] MEDS: cefTRIAXone SODIUM 2,000 MG in DEXTROSE 5 % MINI-B 50 ML IV SCH (19:28)
[2023-07-03 00:37] LABS: 18KDIGG Band REACTIVE; 23KDIGG Band REACTIVE; 23KDIGM Band NON-REACTIVE; 28KDIGG Band REACTIVE; 30KDIGG Band NON-REACTIVE; 39KDIGG Band REACTIVE; 39KDIGM Band NON-REACTIVE; 41KDIGG Band REACTIVE; 41KDIGM Band NON-REACTIVE; 45KDIGG Band NON-REACTIVE; 58KDIGG Band REACTIVE; 66KDIGG Band REACTIVE; 93KDIGG Band REACTIVE; Lyme Antibodies, WB IgG POSITIVE (NEGATIVE); Lyme Antibodies, WB IgM NEGATIVE (NEGATIVE)
--- NOTE | 2023-07-03 07:53 | Infectious Disease Progress Nt ---
Date of Service July 03, 2023 Assessment & Plan (1) Mitral regurgitation: (2) ICD (implantable cardioverter-defibrillator) in place: (3) Mobitz type 2 second degree heart block: (4) Apical variant hypertrophic cardiomyopathy: (5) Lyme carditis: (6) Heart block AV second degree: (7) Elevated troponin I level: (8) Positive Lyme disease serology: Plan Levi Alonzo is a 23-year-old man with history of hypertrophic cardiomyopathy (apical variant) s/p AICD/PPM, who presents to [facility] with palpitations, found to have Mobitz type 2 second degree heart block, and Lyme Ab with +IgG Ab, western blot with 8 reactive IgG bands. ID is consulted for susp ected Lyme carditis. 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 With positive Lyme IgG+ and western blot for IgG positive with 8 reactive IgG bands. IgM negative though Lyme carditis can be a slightly later (early disseminated) manifestation and thus Lyme carditis is still possible with this serologic pattern (especially with the imperfect nature of serologic testing). 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 Given the patients underlying structural heart disease and severity of heart block, would continue ceftriaxone to complete a 21-day treatment course for Lyme carditis. Consideration could be given to transitioning to PO doxycycline later in the course (especially if >14 days of IV ceftriaxone) and especially if his arrhythmias were to be fully resolved. Doxycycline may be equivalent therapy but out of abundance of caution given pts underlying structural heart disease will choose to start with IV ceftriaxone.Will send for Anaplasma/Babesia coinfection testing (pending on discharge). Typically, patients with Lyme carditis have reversible arrhythmia, though the patient does also have underlying structural heart disease. If he has improvement/resolution of his arrhythmias with treatment, this would be further confirmation of Lyme carditis as a diagnosis. If his arrhythmias persist/worsen then would consider alternate diagnoses. Appreciate continued involvement from inpatient cardiology, and patient should have close follow-up with his outpatient cardiologists and PCP as well. 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 Consideration can be given to transition to PO doxycycline especially if arrhythmias have been resolved - Weekly lab monitoring while on IV antibiotics: CBC w/ diff, CMP - Send and follow-up Anaplasma and Babesia co-testing (pending on discharge) - Recommend close follow-up with PCP and cardiology Plan discussed with hospitalist. Thank you for letting ID participate in the care of this patient. ID will sign off at this time. If questions, please contact the [facility] call center at [phone]. Marleny Rayo MD, [facility] Infectious Diseases [facility] direct line: [phone] Admission and Anticipated Discharge Date Admission Date: June 28, 2023 Subjective Subsequent visit was provided via telemedicine using two-way real-time interactive telecommunication between the patient and the telemedicine provider. For the duration of the visit, the provider was performing the assessment from a different facility than the patient. This includesuse of bluetooth stethoscope forauscultationperformed by the telepresenter that the telemedicine provider can hear if described in the physical exam. Jewelry Manager contact information: Please call [facility] Call Center . (Phone Number For Physician Use Only) After establishing a telemedicine visit, patient was: Patient was verified with two unique identifiers, Patient/authorized rep acknowledged consent and understanding and Gave permission to continue telehealth session Time Spent with Patient: Subsequent => 55 min - Afebrile - Feeling well, eager to discharge home Physical Exam Physical Exam: Exam obtained with aid of in-person telepresenter. General: Well-appearing, no acute distress HEENT: Conjunctivae non-injected, sclerae anicteric, MMM, OP clear. Respirations nonlabored. Abd: Soft, nondistended. Ext: Warm and well-perfused, no edema. No joint warmth or effusions noted. Skin: No rashes or lesions. Neuro: Alert & interactive. Grossly non-focal. Psych: Pleasant, appropriate. Results & Data Vital Signs (Past 12 Hours) Vital Signs Temp Pulse Resp BP BP Pulse Ox O2 Del Method 07/03/23 07:41 36.4 C L 66 18 128/77 97 Room Air 07/03/23 04:00 36.3 C L 58 L 18 114/72 96 Room Air 07/02/23 23:22 36.7 C 75 18 110/66 94 Room Air 07/02/23 19:59 36.8 C 84 20 104/65 96 Room Air Diagnostic Findings Diagnostics: 06/29 TTE: apical hypertrophy, grade I diastolic dysfunction, LA mild dilation, mild-moderate MR Micro Summary: 06/28 Lyme IgG Ab screen positive. Lyme IgM Ab screen negative. 06/28 Lyme Western blot: ---Reactive Ig kDa, 23 kDa, 28 kDa, 39 kDa, 41 kDa, 58 kDa, 66 kDa, 93 kDa. ---Non-reactive Ig kDa, 45 kDa ---Non-reactive IgM: 23 kDa, 39 kDa, 41 kDa Antibiotic Summary: Ceftriaxone (06/28-present) (1) Mitral regurgitation Cardiac valve disease etiology: nonrheumatic Qualified Code(s): I34.0 - Nonrheumatic mitral (valve) insufficiency
[2023-07-03] MEDS: METOPROLOL SUCC 25MG EXT REL TAB PO SCH (07:56)
[2023-07-03] MEDS: ALPRAZolam 0.5 MG TABLET PO PRN ×2 (07:59→13:56)
--- NOTE | 2023-07-03 10:07 | Cardiology Progress Note ---
Date of Service July 03, 2023 Assessment & Plan (1) Mobitz type 2 second degree heart block: (2) ICD (implantable cardioverter-defibrillator) in place: (3) Apical variant hypertrophic cardiomyopathy: (4) Elevated troponin I level: (5) Mitral regurgitation: Plan 1. Heart block: He still has evidence of second or higher degree AV block on telemetry, this can only be seen when his atrial rate exceeds his upper programmed rate, otherwise he has atrial sensing and ventricular pacing so it cannot be determined whether this is first-degree or higher AV block. Therefore I cannot determine whether his conduction is improving substantially or not, he has been on IV antibiotics now for quite a few days so this may indicate that he will not have substantial improvement with treatment of Lyme disease but I think it is too early to tell. Even though he has Lyme disease that does not mean it caused a heart block although it still remains a possibility. 2. Dual-chamber ICD: This continues to work appropriately, his upper tracking rate is relatively low and if he needs to pace over the long run this will probably need to be increased. He preferred to pace less frequently and therefore it was purposely left low, I have not adjusted his device today as this is not a safety issue and he seems asymptomatic. 3. Hypertrophic cardiomyopathy: No evidence of clinical manifestation unless this is related to his AV block. 4. Elevated troponin: This is chronic elevated and does not suggest acute injury. 5. Mitral regurgitation: Not clinically significant at this time but needs to be followed over the long run. He does have an appointment in 1 week with his tooling mechanic in [place], I will schedule him for 2-month follow-up visit here with Dr. Day. Admission and Anticipated Discharge Date Admission Date: June 28, 2023 Subjective He continues to feel relatively well, he is unaware of pacing but he has not tried to exert himself strenuously. He is still somewhat anxious. Physical Exam Physical Exam: Constitutional: Alert, cooperative and in no distress. Pulmonary: Clear to auscultation bilaterally. Cardiac: Regular rhythm with no murmur, gallop or rub. Abdomen: Soft, nontender with normal bowel sounds. Extremities: No edema. Skin: No rash, ecchymoses or petechiae. Results & Data Vital Signs (Past 12 Hours) Vital Signs Temp Pulse Pulse Resp BP BP Pulse Ox 07/03/23 09:40 59 L 12/13/23 07:41 36.4 C L 66 18 128/77 97 07/03/23 04:00 36.3 C L 58 L 18 114/72 96 07/02/23 23:22 36.7 C 75 18 110/66 94 O2 Del Method 07/03/23 09:40 07/03/23 07:41 Room Air 07/03/23 04:00 Room Air 07/02/23 23:22 Room Air Laboratory Results Intake and Output 07/02/23 07/03/23 07/03/23 22:59 06:59 14:59 Intake Total 290 / 1010 520 / 1010 Balance 290 / 1010 520 / 1010 Intake: IV 50 / 50 cefTRIAXone SODIUM 2,000 mg In 50 / 50 Dextrose 5 % Mini-B 50 ml @ 100 mls/hr IV Q24H MAMADOU Rx#: [id number] Oral 240 / 960 520 / 960 Other: # Unmeasured Voids 2 Weight 92.6 kg Weight Measurement Method Built in [facility] He is Western blot indicates a positive IgG and negative IgM Diagnostic Findings Telemetry: Sinus rhythm with intermittent ventricular pacing. PG Care Time/CCT Total # of Minutes Spent Total Time Spent with Patient: Total time spent is greater than 50% in coordination of care (as documented) at patient's floor/unit and/or counseling patient: Coding Level of Care Code 36097 SUB INP/OBS CARE 2/35MIN Diagnoses Mobitz type 2 second degree heart block I44.1 ICD (implantable cardioverter-defibrillator) in place Z95.810 Apical variant hypertrophic cardiomyopathy I42.2 Elevated troponin I level R79.89 Nonrheumatic mitral valve regurgitation I34.0 Cardiac valve disease etiology: nonrheumatic (5) Mitral regurgitation Cardiac valve disease etiology: nonrheumatic Qualified Code(s): I34.0 - Nonrheumatic mitral (valve) insufficiency
--- NOTE | 2023-07-03 12:48 | Discharge Summary ---
Date of Service July 03, 2023 Admission HPI Per Admitting Provider Levi is a 23-year-old male with past medical history of hypertrophic cardiomyopathy with defibrillator/pacemaker in place who presents with palpitations. He has a mildly elevated troponin of 15.4, EKG shows sinus bradycardia? Type II heart block and left bundle. Case was discussed with Dr. Day while patient was in the ER prior to admission, low suspicion for ACS and suspect may need a pacemaker adjustment. Interrogation pending, echo pending. Will follow on PCU He reports that he started to have palpitations this morning but does not have chest pain/chest pressure or shortness of breath. He initially thought this was best described as pain but is not really pain, is more a feeling like his heart is missing beats without discomfort. This is not present at time of initial assessment, occurs intermittently and randomly. He has not had leg swelling. No fevers, chills, sweats. No arthralgias. No diarrhea/constipation. No syncope or lightheadedness or dizziness From [place], lives in [place] now. No tobacco or ETOH use. NKDA Sees cardiology for atrial cardiomyopathy. Has been told he is NYHA I-II C. Not recommended for experimental myosin tx. Follows with Dr. Ronn Snow Palpitation. Worried as he was told he had Adverse remodeling, mild from HOCM. NO cardiac MRI in 5 years, an echo in a year. Reports his troponin is normally elevated. TRop I 0.125 (old sensitivity). Apical Variant of HOCM with heart failure with ICD/Pacer. 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 Is from [place], follows with [facility] Cardiology. Takes metoprolol 25mg daily. Took this morning, forgets sometimes. Prescribed buspar, but isn't taking this. Takes this for anxiety, but anxiety is not doing well lately. [place] terrible on Zoloft and SSRIs. Has never needed diuretics Admission Exam Per Admitting Provider General: A&Ox3. NAD. Cooperative. HEENT: Atraumatic, normocephalic. Vision and hearing intact Pulm: CTAB A&P. -wheezes, -rales, -rhonchi. Symmetrical chest rise. No increased work of breathing. No respiratory distress. Cardiac: irregular, intermittent bradycardia. -mrg. Radial pulses intact and symmetrical. Abdominal: Nontender, nondistended, soft. BS present. Ext: warm, dry. No edema Principal Diagnosis Mobitz type II second-degree heart block due to Lyme's carditis. Being discharged on IV Rocephin Discharge Exam General: Awake, conversant Heart: S1, S2/regular rate and rhythm, no murmur rubs or gallops Lungs: Clear to auscultation bilaterally. Normal effort Abdomen: Soft/nontender/nondistended. No hepatosplenomegaly Extremities: No clubbing/cyanosis. No edema Behavior: Appropriate, cooperative Discharge Data Allergies Allergy/AdvReac Type Severity Reaction Status Date / Time No Known Drug Allergies Allergy 0 Verified 06/28/23 19:22 Consultations 06/28/23 18:12 ED Decision to Admit Stat 06/28/23 20:59 Consult Cardiology Routine 06/29/23 13:53 Consult Infectious Diseases Routine Hospital Course (1) Mobitz type 2 second degree heart block: Palpitations, history of hypertrophic cardiomyopathy with ICD/Pacer. EKG for comparison 2018 sinus rhythm, report reviewed from patient's phone EKG suspicious for Mobitz 2 heart block w/ L bundle. CT appears generally consistent with intermittent dropped beats. Troponin 138. Patient has baseline elevated troponin, was able to few old records and by old troponin measurement generally runs approximately 0.125 Lyme IgG positive. Western blot confirmed. This is most likely due to Lyme's carditis. Infectious disease on board. Recommended discharging the patient on IV Roceph in to complete 2 to 3 weeks of IV ceftriaxone. End date: 07/18. PICC line placed ID recommended weekly lab monitoring while on IV antibiotics: CBC with differential, CMP Anaplasma and VCA cotesting pending. Will need to be followed up on by PCP If the patient has improvement/resolution of his arrhythmia with treatment of Lyme's carditis, he can then be switched after the second week of IV Rocephin to p.o. doxycycline. I tried to reach out to his renewable energy technician to discuss the plan. Left messages. Awaiting response. The plan was discussed and documented in the patient's discharge instructions. Patient has been advised to discuss the plan with his PCP and his renewable energy technician. He already has an appointment with his renewable energy technician in 8 days. While in the hospital, the patient was evaluated by EP cardiology and his AICD device was programmed. (2) Lyme carditis: IgG positive, has a dog, has never been treated before. Has not noticed any tick bites but did out of her rash a few months ago on his hand which went away. No arthralgias - Heart block as noted - the plan is to continue IV Rocephin for 14 to 21-day as per my discussion with ID . if the block has been resolved then patient can be switched to doxycycline prior to completion of 21-day of treatment with Rocephin (3) Apical variant hypertrophic cardiomyopathy: ICD/pacer in place. Cardiology consulted. Please see cardiology notes (4) ICD (implantable cardioverter-defibrillator) in place: Plan discharge today Total Time Total Time Spent Total Time Spent (In Minutes): 35 Discharge Plan Discharge Items Patient Disposition: Home - Home Health Services Reason For Visit: HEART BLOCK, LYME CARDITIS, HX APICAL VARIANT HYPE Discharge Diagnosis: Mobitz type II second-degree heart block due to Lyme's carditis. Being discharged on IV Rocephin Activity: Resume your previous activity Non-emergency contact: Primary Care Provider Call non-emergency contact if: you have any medication questions and your symptoms worsen Follow-up/Referrals: Medical Treatment Unit (MTU) [Outside] - 07/10/23 12:30 pm (They will draw labs and change your midline dressing at this appointment. They will schedule subsquent appointments after this visit. ) Chinmay Ulloa, [Primary Care Provider] - (PLEASE CALL YOUR PRIMARY CARE PROVIDER TO SCHEDULE A HOSPITAL DISCHARGE FOLLOW-UP APPOINTMENT WITHIN 7-10 DAYS) Diet: Regular Addtl Attending Provider Instructions: Advised to follow-up closely with PCP and renewable energy technician in 1 week Advised to note that you are being discharged on IV Rocephin to complete a 21- day course via PICC line (last dose: 07/18) If the heart block has resolved, consideration can be given to transition from IV Rocephin to p.o. doxycycline (ideally after 14 days of IV Rocephin). This can be coordinated by your renewable energy technician/PCP. I have not been able to get in touch with your doctors. I have left messages. Weekly lab monitoring while on IV antibiotics: CBC with differential, CMP. These labs will need to be followed up on by your PCP Pending Studies at Discharge: Yes Studies:: Follow-up on Anaplasma and Babesia labs Stand-Alone Forms: [facility] Medications and DC Order Prescriptions: New ceftriaxone 2 gram recon soln 2 g IV DAILY 16 Days Continued metoprolol succinate 25 mg tablet extended release 24 hr 25 mg PO QAM buspirone 10 mg tablet 10 mg PO TID PRN (Reason: Anxiety) Discharge Orders: Discharge Order (Routine); Ordered 07/03/23 Ordered By: Brandie Vo/Other Patient Handouts: Preventing Lyme Disease, ED About Arrhythmias, ED Lyme Disease Admission Data Admit Date/Time: 06/28/23 19:00 Attending Provider: Brandie Finney Admit Provider: Aroldo Marshall Primary Care Provider: Chinmay Ulloa Other Providers: Erick Oliveira; Aroldo Marshall; Lv Day; Sonya Jackman; Jeffy Cortes; Sabine Haddad; Evelina Coronel; Neeru Dinh; Ratna Francisco; Micaela Bonilla; Derick Tejada; Maricarmen Dowling; Marleny Rayo; Eddie Brody Other Interventions: Discharge Summary Assessment (RN) Last Done: 07/03/23 12:42 Coding Level of Care Code 88133 INP/OBS DISCH >30 MIN Diagnoses Mobitz type 2 second degree heart block I44.1 Lyme carditis A69.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
[2023-07-03] MEDS: cefTRIAXone SODIUM 2,000 MG in DEXTROSE 5 % MINI-B 50 ML IV SCH (14:34)
== END 2023-07-03 16:16 | disposition home health service (06) | DRG 868 ==
LOC: ED 16:51 → SUATTDRO 19:00 → EDINP 19:00 → 2E 21:00 → 2N 06-30 17:21
DX: I44.1 Atrioventricular block, second degree; I47.10 Supraventricular tachycardia, unspecified; I34.0 Nonrheumatic mitral (valve) insufficiency; A69.29 Other conditions associated with Lyme disease; I42.2 Other hypertrophic cardiomyopathy; I50.32 Chronic diastolic (congestive) heart failure; Z95.810 Presence of automatic (implantable) cardiac defibrillator; I51.89 Other ill-defined heart diseases; R79.89 Other specified abnormal findings of blood chemistry; R00.1 Bradycardia, unspecified